=== PATIENT | male | born 1985 | race Caucasian/White ===

== ENCOUNTER 2020-04-29 00:32 | Emergency (ER) | payer BC, MEDICAID ==
[~2020-04-29] VITALS: Ht 190.5 cm; Wt 106.6 kg
[2020-04-29 00:43] VITALS: BP 135/87
[2020-04-29] MEDS ORDERED: MORPHINE SULFATE INJECTION 2 MG/ML SYRG IM ONE ×2 (04:00→05:15)
[2020-04-29] MEDS ORDERED: ONDANSETRON ODT 4 MG TAB PO ONE (04:00)
[2020-04-29] MEDS ORDERED: TETANUS-DIPTH-ACEL PERTUSSIS 0.5ML SYR Tdap IM ONE (04:45)
[2020-04-29] MEDS ORDERED: cefTRIAXone SOD 1,000 MG VL IM ONE (05:15)
== END 2020-04-29 05:31 | disposition home or self-care (01) ==
LOC: ER 00:32
DX: S05.12XA Contusion of eyeball and orbital tissues, left eye, initial encounter (principal); S22.32XA Fracture of one rib, left side, initial encounter for closed fracture; S01.112A Laceration without foreign body of left eyelid and periocular area, initial encounter; F17.210 Nicotine dependence, cigarettes, uncomplicated; Z90.49 Acquired absence of other specified parts of digestive tract; V49.9XXA Car occupant (driver) (passenger) injured in unspecified traffic accident, initial encounter; Y93.89 Activity, other specified; Y92.89 Other specified places as the place of occurrence of the external cause; Y99.8 Other external cause status
CPT/HCPCS: 12011; 70450; 71250; 72125; 73030; 74176; 90471; 90715; 96372; 99285; J0696; J2270; Q0162